=== PATIENT | female | born 1995 | race Caucasian/White ===

== ENCOUNTER 2018-12-21 18:40 | Inpatient (IN) | payer BC, MEDICAID ==
[~2018-12-21 18:40] MED LIST: EPHEDrine 50 MG INJ; ONDANSETRON 4 MG INJ
[2018-12-21 20:13] LABS: ADD MAN DIFF? NO
[2018-12-21 20:17] LABS: WHITE BLOOD COUNT 12.9 10^3/ul (4.8-10.8)
[2018-12-21 20:17] LABS: BASOPHIL # 0.1 10^3/ul (0.0-0.1); BASOPHILS % 0.5 % (0.0-2.0); HEMATOCRIT 35.6 % (37.0-47.0); HEMOGLOBIN 11.3 g/dl (12.0-16.0); LYMPHOCYTES # 2.3 10^3/ul (0.8-2.9); LYMPHOCYTES % 17.9 % (15.0-51.0); MEAN CORPUSCULAR HEMOGLOBIN 26.7 pg (29.0-33.0); MEAN CORPUSCULAR HGB CONC 31.7 g/dl (32.0-37.0); MEAN PLATELET VOLUME 12.5 fl (7.4-10.4); MONOCYTE # 0.8 10^3/ul (0.3-0.9); MONOCYTES % 5.9 % (0.0-11.0); NEUTROPHIL # 9.5 10^3/ul (1.6-7.5); NEUTROPHILS % 73.8 % (39.0-77.0); PLATELET COUNT 328 10^3/UL (140-415); RED BLOOD COUNT 4.24 10^6/ul (4.20-5.40); RED CELL DISTRIBUTION WIDTH 14.4 % (11.5-14.5)
[2018-12-21] MEDS ORDERED: OXYTOCIN 30 UNITS/LR 500 ML IV (20:30)
[2018-12-21] MEDS ORDERED: CARBOPROST 250 MCG INJ IM (20:30)
[2018-12-21] MEDS ORDERED: METHYLERGONOVINE 0.2 MG INJ IM (20:30)
[2018-12-21] MEDS ORDERED: MISOPROSTOL 200 MCG TAB PR (20:30)
[2018-12-21 20:33] LABS: ALANINE AMINOTRANSFERASE 52 IU/L (13-69); ALBUMIN 3.6 g/dl (3.3-4.9); ALKALINE PHOSPHATASE 497 IU/L (42-121); ANION GAP 13 (5-13); ASPARTATE AMINO TRANSFERASE 80 IU/L (15-46); BILIRUBIN,INDIRECT 0.2 mg/dl (0-1.1); BILIRUBIN,TOTAL 0.2 mg/dl (0.2-1.3); BLOOD UREA NITROGEN 6 mg/dl (7-20); CALCIUM 9.8 mg/dl (8.4-10.2); CARBON DIOXIDE 17 mmol/L (21-31); CHLORIDE 106 mmol/L (97-110); CREATININE 0.53 mg/dl (0.44-1.00); Estimated GFR > 60 mL/min (>60); GLUCOSE 69 mg/dl (70-220); POTASSIUM 4.1 mmol/L (3.5-5.1); SODIUM 136 mmol/L (135-144); TOTAL PROTEIN 7.2 g/dl (6.1-8.1)
[2018-12-21 20:35] LABS: INR 0.85; PARTIAL THROMBOPLASTIN TIME 23.3 Sec (23.0-35.0); PROTIME 11.7 Sec (11.9-14.9); PT RATIO 0.9
[2018-12-21] MEDS: LACTATED RINGER'S 1,000 ML IV ×2 (20:37→22:55)
[2018-12-21] MEDS ORDERED: morphine SULFATE/PF (10 MG/10 ML) INJ (21:06)
[2018-12-21 21:10] LABS: RAPID PLASMA REAGIN NONREACTIVE (NR)
[2018-12-21] MEDS ORDERED: METOCLOPRAMIDE 10 MG INJ (21:28)
[2018-12-21] MEDS ORDERED: MIDAZOLAM 1 MG/ML 2 ML INJ (21:40)
[2018-12-21] MEDS ORDERED: OXYTOCIN 10 UNIT INJ ×3 (21:40→21:47)
[2018-12-21] MEDS ORDERED: ZOLPIDEM 5 MG TAB PO (22:00)
[2018-12-21] MEDS ORDERED: MIDAZOLAM 1 MG/ML 2 ML INJ IV (22:00)
[2018-12-21] MEDS ORDERED: NALOXONE (0.4 MG/ML) INJ IV (22:00)
[2018-12-21] MEDS ORDERED: DIPHENHYDRAMINE 50 MG INJ IV ×2 (22:00)
[2018-12-21] MEDS ORDERED: HYDROmorphONE 0.5 MG/0.5 ML SYG IV ×2 (22:00)
[2018-12-21] MEDS ORDERED: ONDANSETRON 4 MG INJ IV (22:00)
[2018-12-21] MEDS ORDERED: NALBUPHINE HCL (10 MG/1 ML) INJ IV (22:00)
[2018-12-21] MEDS ORDERED: MEPERIDINE 25 MG INJ IV (22:00)
[2018-12-21] MEDS: ONDANSETRON 4 MG INJ IV (22:55)
[2018-12-21] MEDS: DEXTROSE 5%-LR 1,000 ML IV (22:58)
[2018-12-21] MEDS: CEFAZOLIN 2 GM/50 ML (PMX) 50 ML IVPB (23:00)
[2018-12-21] MEDS: AZITHROMYCIN 500MG/NS (PMX) 250 ML IV (23:00)
[2018-12-22] MEDS: OXYTOCIN 30 UNITS/LR 500 ML IV (00:40)
[2018-12-22] MEDS ORDERED: ZOLPIDEM 5 MG TAB PO (01:30)
[2018-12-22] MEDS ORDERED: MISOPROSTOL 200 MCG TAB PR (01:30)
[2018-12-22] MEDS ORDERED: ONDANSETRON 4 MG INJ IV (01:30)
[2018-12-22] MEDS ORDERED: OXYTOCIN 30 UNITS/LR 500 ML IV (01:30)
[2018-12-22] MEDS ORDERED: CARBOPROST 250 MCG INJ IM (01:30)
[2018-12-22] MEDS ORDERED: DIPHENHYDRAMINE 50 MG INJ IV (01:30)
[2018-12-22] MEDS ORDERED: OXYCODONE/ACETAMINOPHEN (5/325) TAB PO (01:30)
[2018-12-22] MEDS ORDERED: METHYLERGONOVINE 0.2 MG INJ IM (01:30)
[2018-12-22] MEDS: LACTATED RINGER'S 1,000 ML IV ×2 (04:27→11:56)
[2018-12-22 08:27] LABS: WHITE BLOOD COUNT 14.1 10^3/ul (4.8-10.8)
[2018-12-22 08:27] LABS: ADD MAN DIFF? NO; BASOPHIL # 0.1 10^3/ul (0.0-0.1); BASOPHILS % 0.4 % (0.0-2.0); EOSINOPHILS % 0.1 % (0.0-7.0); HEMATOCRIT 34.3 % (37.0-47.0); HEMOGLOBIN 10.8 g/dl (12.0-16.0); LYMPHOCYTES # 2.8 10^3/ul (0.8-2.9); LYMPHOCYTES % 19.9 % (15.0-51.0); MEAN CORPUSCULAR HEMOGLOBIN 26.4 pg (29.0-33.0); MEAN CORPUSCULAR HGB CONC 31.5 g/dl (32.0-37.0); MEAN CORPUSCULAR VOLUME 83.9 fl (82.0-101.0); MEAN PLATELET VOLUME 12.9 fl (7.4-10.4); MONOCYTE # 1.2 10^3/ul (0.3-0.9); MONOCYTES % 8.6 % (0.0-11.0); NEUTROPHIL # 9.9 10^3/ul (1.6-7.5); NEUTROPHILS % 70.2 % (39.0-77.0); PLATELET COUNT 280 10^3/UL (140-415); RED BLOOD COUNT 4.09 10^6/ul (4.20-5.40); RED CELL DISTRIBUTION WIDTH 14.4 % (11.5-14.5)
[2018-12-22] MEDS: KETOROLAC 30 MG INJ IV ×3 (09:33→21:33)
[2018-12-22] MEDS: SENNA/DOCUSATE NA (8.6MG/50MG) TAB PO ×2 (09:33→20:54)
[2018-12-22] MEDS: LANOLIN HPA 1 PKT TOP (16:04)
[2018-12-23] MEDS: IBUPROFEN 600 MG TAB PO ×4 (00:24→17:07)
[2018-12-23] MEDS: SENNA/DOCUSATE NA (8.6MG/50MG) TAB PO ×2 (09:21→21:25)
[2018-12-23] MEDS: OXYCODONE/ACETAMINOPHEN (5/325) TAB PO ×4 (09:26→22:38)
[2018-12-24] MEDS: IBUPROFEN 600 MG TAB PO ×3 (00:16→11:41)
[2018-12-24] MEDS: LANOLIN HPA 1 PKT TOP (03:21)
[2018-12-24] MEDS: DIPHTH/TET/ACEL PERTUSS (ADULT) 0.5 ML VIAL IM* (09:00)
[2018-12-24] MEDS: SENNA/DOCUSATE NA (8.6MG/50MG) TAB PO (10:17)
== END 2018-12-24 14:56 | disposition home or self-care (01) | DRG 786 ==
LOC: PP1 12-22 01:19 → L-D 18:40
PROVIDERS: Obstetrics & Gynecology
PROC: 10D00Z1 Extraction of Products of Conception, Low, Open Approach (ICD-10-PCS; principal; 2018-12-22)
DX: O26.62 Liver and biliary tract disorders in childbirth (principal); K83.1 Obstruction of bile duct; O24.420 Gestational diabetes mellitus in childbirth, diet controlled; O32.1XX0 Maternal care for breech presentation, not applicable or unspecified; O77.0 Labor and delivery complicated by meconium in amniotic fluid; Z3A.36 36 weeks gestation of pregnancy; Z37.0 Single live birth
CPT/HCPCS: 76815; 76818; 80053; 82962; 85025; 85610; 85730; 86592; 86850; 86900; 86901; 99464